=== PATIENT | female | born 1965 | race Caucasian/White ===

== ENCOUNTER → 2017-03-04 | Outpatient (CLI) | payer OTHER ==
[~2017-03-04] MED LIST: BUSPAR; EFFEXOR; FLEXERIL10 MG PO; FLUOXETINE HCL20 M1; FLUOXETINE HCL20 M1 PO; MOBIC; PERCOCET PO; PRILOSEC20 MG; REQUIP0.25 MG; VOLTAREN75 MG PO
--- NOTE | ~2017-03-04 | CR63 ---
[facility]. [facility] A Service of [facility] & [facility] RADIOLOGY TEXT RESULTS PATIENT: NICKO MONTEZ LOCATION: [facility] : 67 UNIT #: [id number] AGE: [address]: Chaka Bryant MD SEX: F ORDER DR: [id number] [address] [address] [id number] O MR#: [id number] Acc #: [id number] NAME: NICKO MONTEZ : 1965 SEX: F STUDY DATE/TIME: 03/04/2017 14:54 UNIT: [facility] ROOM: STUDY DESCRIPTION: CR Chest 2 View Attending Physician: Chaka Bryant M.D. Referring Physician: Chaka Bryant M.D. Ordering Physician: Chaka Bryant M.D. Primary Care Physician: Chaka Bryant M.D. MEDICAL IMAGING REPORT This report is preliminary unless electronic signature is present. EXAM Chest, 03/04/2017. HISTORY 51-year-old female; short of breath, fatigue, chest pain, dizziness, nausea, symptoms for 1 year getting worse. 30-year smoking history. COMPARISON Single view chest, 03/07/2014. PA and lateral chest views show normal cardiac size and configuration. Hilar structures and mediastinal contours are preserved. Bilateral lungs are expanded and clear, and costophrenic angles preserved. IMPRESSION Stable chest. No acute chest finding. Dictated by... Bimal Owen M.D. THIS IS AN ELECTRONICALLY VERIFIED REPORT Bimal Owen M.D. at 03/05/2017 8:07 AM Clare TD: 03/04/2017 17:25 JOB #: [id number] MEDICAL IMAGING REPORT Page 1 of 1
== END | disposition home or self-care (01) ==
LOC: SRAD 14:43
DX: R06.02 Shortness of breath (principal); R53.83 Other fatigue
CPT/HCPCS: 71020

== ENCOUNTER → 2017-03-25 | Outpatient (CLI) | payer OTHER ==
--- NOTE | ~2017-03-25 | CR169 ---
[facility]. [facility] A Service of [facility] & [facility] RADIOLOGY TEXT RESULTS PATIENT: NICKO MONTEZ LOCATION: [facility] : 67 UNIT #: [id number] AGE: [address]: RUT PICHARDO SEX: F ORDER DR: [id number] [place] [id number] O MR#: [id number] Acc #: [id number] NAME: NICKO MONTEZ : 1965 SEX: F STUDY DATE/TIME: 03/25/2017 14:49 UNIT: [facility] ROOM: STUDY DESCRIPTION: CR Knee 2 Views Lt Attending Physician: Rut Pichardo Referring Physician: Rut Pichardo Ordering Physician: Physician Non-Staff Primary Care Physician: Chaka Bryant M.D. MEDICAL IMAGING REPORT This report is preliminary unless electronic signature is present. EXAM Left knee 03/25. INDICATION Chronic knee pain and swelling for years, getting worse. FINDINGS Two views of the left knee were obtained. No comparison. No fracture or joint effusion is identified. Minimal lateral compartment joint space narrowing may reflect osteoarthritis. IMPRESSION Lateral compartment joint space narrowing suggesting osteoarthritis. The knee is otherwise negative. Dictated by... José Roth Jr., M.D. THIS IS AN ELECTRONICALLY VERIFIED REPORT José Roth Jr., M.D. at 03/27/2017 6:07 AM TG/nichole TD: 03/26/2017 11:36 JOB #: [id number] MEDICAL IMAGING REPORT Page 1 of 1
--- NOTE | ~2017-03-25 | CR170 ---
[facility]. [facility] A Service of [facility] & [facility] RADIOLOGY TEXT RESULTS PATIENT: NICKO MONTEZ LOCATION: [facility] : 67 UNIT #: [id number] AGE: [address]: RUT PICHARDO SEX: F ORDER DR: [id number] [place] [id number] O MR#: [id number] Acc #: [id number] NAME: NICKO MONTEZ : 1965 SEX: F STUDY DATE/TIME: 03/25/2017 14:49 UNIT: [facility] ROOM: STUDY DESCRIPTION: CR Knee 2 Views Rt Attending Physician: Rut Pichardo Referring Physician: Rut Pichardo Ordering Physician: Physician Non-Staff Primary Care Physician: Chaka Bryant M.D. MEDICAL IMAGING REPORT This report is preliminary unless electronic signature is present. EXAM Right knee, 03/25. INDICATION Knee pain and swelling chronically for years, getting worse. FINDINGS Two views of the right knee were obtained. No fracture is identified. There is no joint effusion. There is some joint space narrowing in the lateral compartment which may be due to osteoarthritis. IMPRESSION Lateral compartment joint space narrowing suggests osteoarthritis. The rest of the knee is negative. Dictated by... José Roth Jr., M.D. THIS IS AN ELECTRONICALLY VERIFIED REPORT José Roth Jr., M.D. at 03/27/2017 6:07 AM TG/sonia TD: 03/26/2017 11:45 JOB #: [id number] MEDICAL IMAGING REPORT Page 1 of 1
== END | disposition home or self-care (01) ==
LOC: SRAD 14:25
DX: M25.561 Pain in right knee (principal); M25.562 Pain in left knee
CPT/HCPCS: 73560